=== PATIENT | female | born 1975 | race Caucasian/White ===

== ENCOUNTER 2018-10-23 02:13 | Emergency (ER) | payer SELFPAY | END 2018-10-23 03:47 | disposition home or self-care (01) | LOC: ERS 02:13 | DX: S60.011A Contusion of right thumb without damage to nail, initial encounter (principal); S50.11XA Contusion of right forearm, initial encounter; F17.210 Nicotine dependence, cigarettes, uncomplicated; F41.9 Anxiety disorder, unspecified; F32.9 Major depressive disorder, single episode, unspecified | CPT/HCPCS: 99283 ==